=== PATIENT | male | born 1970 | race Caucasian/White ===

== ENCOUNTER 2020-01-19 19:53 | Emergency (ER) | payer SELFPAY ==
[~2020-01-19 19:53] MED LIST: Iopamidol-370 76% 500 ML 1 ML ONE
[2020-01-19] MEDS ORDERED: Ondansetron PF 4 MG/2 ML Vial ONE (20:15)
[2020-01-19] MEDS ORDERED: Lidocaine Viscous Sol 2% 15 ml UD Cup ONE (20:15)
[2020-01-19] MEDS ORDERED: Magnesium 2 GM/50 ML BAG (IN WATER) ONE (20:15)
[2020-01-19] MEDS ORDERED: Famotidine/PF 20 mg/2ml Vial ONE (20:15)
[2020-01-19] MEDS ORDERED: Mag-Al 1200 mg/1200 mg/30 ML UDCUP ONE (20:16)
[2020-01-19 20:22] LABS: #Basophils 0.1 thou/uL (0.0-0.2); #Eosinphils 0.4 thou/uL (0.0-0.7); #Lymphocytes 2.7 thou/uL (1.20-3.40); #Monocytes 1.1 thou/uL (0.11-0.59); #Neutrophils 7.6 thou/uL (1.40-6.50); %Basophils 0.7 % (0.0-1.0); %Eosinophils 3.6 % (0.0-10.0); %Lymphocytes 22.8 % (21.0-51.0); %Monocytes 9.3 % (0.0-10.0); %Neutrophils 63.7 % (42.0-75.0); Mean Corpuscular HGB CONC 34.1 g/dL (32.0-36.0); Mean Corpuscular Hemoglobin 32.3 pg (27.0-31.0); Mean Corpuscular Volume 94.7 fL (78.0-98.0); Mean Platelet Volume 6.5 fL (7.4-10.4); Platelet Count 275 thou/uL (130-400); RBC Distribution Width 12.3 % (11.5-14.5); Red Blood Cell (RBC) Count 4.96 mill/uL (4.70-6.10); White Blood Cell (WBC) Count 11.9 thou/uL (4.8-10.8)
--- NOTE | 2020-01-19 20:29 | RAD ---
FRONTAL RADIOGRAPH CHEST: Date: 01-19-2020 Comparison: None History: Intermittent pain. FINDINGS: Lungs are clear. Heart and mediastinal contours are unremarkable. IMPRESSION: No acute findings. POS: [facility]
[2020-01-19 20:42] LABS: ALT (SGPT) 17 U/L (8-55); AST (SGOT) 32 U/L (5-34); Albumin 4.6 g/dL (3.5-5.0); Alkaline Phosphatase 76 U/L (40-110); Anion Gap 13 mmol/L (10-20); BUN (Urea Nitrogen) 16 mg/dL (8.9-20.6); Bilirubin, Total 0.9 mg/dL (0.2-1.2); Calc. Creatinine Clearance 0 mL/min (70-130); Calcium 10.2 mg/dL (7.8-10.44); Carbon Dioxide 27 mmol/L (22-29); Chloride 104 mmol/L (98-107); Estimated GFR-MDRD 70; Glucose 119 mg/dL (70-105); Lipase 48 U/L (8-78); Potassium 3.7 mmol/L (3.5-5.1); Protein, Total 7.6 g/dL (6.0-8.3); Sodium 140 mmol/L (136-145)
--- NOTE | 2020-01-19 20:50 | CT ---
CT ABDOMEN AND PELVIS: Date: 01-19-2020 Comparison: None History: Epigastric pain Technique: Axial CT imaging at 5 mm intervals from lung bases through the pubic symphysis with IV con trast. Coronal and sagittal reformatted imaging obtained. FINDINGS: The lack of oral contrast limits assessment of the bowel. The visualized lung bases are unremarkable. There is no free intraperitoneal air noted. The liver, gallbladder, and spleen appear unremarkable. The stomach is distended and filled with flui d/debris. The pancreas, adrenal glands, and kidneys demonstrate no acute findings. There is mild diffuse nonspecific wall thickening of small bowel loops within the mid aspect of the u pper abdomen which may be secondary to under distention or mild enteritis. No evidence for bowel obst ruction. Partially visualized appendix appears grossly unremarkable. The vascular structures of the abdomen/pelvis appear patent. No enlarged lymph nodes are noted withi n the abdomen or pelvis. Review of the osseous structures demonstrate degenerative endplate change with disc space narrowing a nd vacuum disc formation at the L5-S1 level. There is no worrisome lytic or blastic bone lesion. IMPRESSION: 1. Distended stomach filled with fluid and debris. 2. Mild wall prominence of small bowel loops in the upper abdomen may signify nonspecific enteritis v ersus under distention. POS: [facility]
[2020-01-19] MEDS ORDERED: Morphine 4 MG/ML VIAL ONE (21:36)
[2020-01-19 22:01] LABS: Bilirubin Negative (Negative); Blood, Urine Negative (Negative); Clarity Clear (Clear); Glucose, Urine (Dipstick) Normal (Negative); Leukocyte Negative Leu/uL (Negative); Nitrite Negative (Negative); Protein, Urine (Dipstick) Negative (Neg-Trace); Urobilinogen Normal mg/dL (Less than 2)
== END 2020-01-19 22:05 | disposition home or self-care (01) ==
LOC: ERS 19:53
DX: R10.13 Epigastric pain (principal); F31.9 Bipolar disorder, unspecified; F17.210 Nicotine dependence, cigarettes, uncomplicated
CPT/HCPCS: 71045; 74177; 80053; 81003; 83690; 84484; 85025; 93005; 94760; 96374; 96375; J2270; J2405; J3475; Q9967; S0028

== ENCOUNTER 2022-07-19 14:28 | Inpatient (IN) | payer SELFPAY ==
[2022-07-19 15:23] LABS: #Eosinphils 0.4 thou/uL (0.0-0.7); #Lymphocytes 2.7 thou/uL (1.20-3.40); #Monocytes 0.8 thou/uL (0.11-0.59); #Neutrophils 6.2 thou/uL (1.40-6.50); %Basophils 0.3 % (0.0-1.0); %Eosinophils 4.2 % (0.0-10.0); %Lymphocytes 26.4 % (21.0-51.0); %Monocytes 7.4 % (0.0-10.0); %Neutrophils 61.7 % (42.0-75.0); Hemoglobin 18.1 g/dL (14.0-18.0); Mean Corpuscular HGB CONC 32.7 g/dL (32.0-36.0); Mean Corpuscular Volume 94.8 fl (78.0-98.0); Mean Platelet Volume 7.1 fL (7.4-10.4); Platelet Count 223 10x3/uL (130-400); RBC Distribution Width 13.9 % (11.5-14.5); Red Blood Cell (RBC) Count 5.85 mill/uL (4.70-6.10)
[2022-07-19 15:42] LABS: ALT (SGPT) 21 U/L (8-55); AST (SGOT) 27 U/L (5-34); Albumin 4.3 g/dL (3.5-5.0); Alkaline Phosphatase 69 U/L (40-110); Anion Gap 11 mmol/L (10-20); BUN (Urea Nitrogen) 13 mg/dL (8.9-20.6); Bilirubin, Total 1.3 mg/dL (0.2-1.2); Calc. Creatinine Clearance 0 mL/min (70-130); Calcium 10.5 mg/dL (7.8-10.44); Carbon Dioxide 31 mmol/L (22-29); Chloride 103 mmol/L (98-107); Estimated GFR 88; Globulin 2.5 g/dL (2.4-3.5); Glucose 97 mg/dL (70-105); Lipase 41 U/L (8-78); Potassium 3.9 mmol/L (3.5-5.1); Protein, Total 6.8 g/dL (6.0-8.3); Sodium 141 mmol/L (136-145)
[2022-07-19] MEDS ORDERED: Mag-Al 1200 mg/1200 mg/30 ML UDCUP ONE (19:31)
[2022-07-19] MEDS ORDERED: Lidocaine Viscous Sol 2% 15 ml UD Cup ONE (19:34)
[2022-07-19 19:39] LABS: Troponin I Less than 0.010 ng/mL (< 0.028)
[2022-07-19] MEDS ORDERED: Nicotine 14 MG PATCH ONE (22:08)
[2022-07-20 01:20] LABS: SARS-CoV-2 NAA Rapid Test Not Detected (NotDetected)
[2022-07-20] MEDS ORDERED: Morphine 4 MG/ML VIAL SLOW IVP PRN (06:17)
[2022-07-20] MEDS ORDERED: Ketorolac Tromethamine 30 MG/ML VIAL IVP SCH (08:30)
[2022-07-20] MEDS ORDERED: Ketorolac Tromethamine 30 MG/ML VIAL ONE (08:59)
[2022-07-20] MEDS: Lactated Ringer's 1,000 ML IV SCH ×3 (09:30→21:42)
[2022-07-20 11:55] VITALS: BMI 24.0
[2022-07-20] MEDS ORDERED: FLU VACC QS2022-23(6MOS UP)/PF 60 MCG/0.5 ML SYRINGE IM ONE (12:15)
[2022-07-20] MEDS ORDERED: Ketorolac Tromethamine 30 MG/ML VIAL IVP PRN (14:00)
[2022-07-20] MEDS ORDERED: traMADol HCl 50 MG TAB PO PRN (18:31)
[2022-07-20] MEDS ORDERED: Ibuprofen 600 MG TAB PO PRN (18:31)
[2022-07-20] MEDS ORDERED: Acetaminophen 500 MG TAB PO PRN (18:31)
[2022-07-20] MEDS ORDERED: Acetaminophen 500 MG TAB PO SCH (18:45)
[2022-07-21] MEDS: Lactated Ringer's 1,000 ML IV SCH (05:10)
[2022-07-21] MEDS ORDERED: Bupivacaine/Epinephrine 0.25% 30 ML VIAL ONE (13:30)
[2022-07-21] MEDS ORDERED: fentaNYL PF 100 MCG/2 ML SYRINGE ONE (13:43)
[2022-07-21] MEDS ORDERED: SUGAMMADEX SODIUM 200 MG/2 ML VIAL ONE (13:43)
[2022-07-21] MEDS ORDERED: HYDROmorphone 2 MG/ML VIAL SLOW IVP PRN (14:35)
[2022-07-21] MEDS ORDERED: Promethazine HCl 25 MG/ML VIAL IVPB PRN (14:35)
[2022-07-21] MEDS ORDERED: Meperidine HCl/PF 25 MG/ML VIAL SLOW IVP PRN (14:35)
[2022-07-21] MEDS ORDERED: FENTANYL 50 MCG/ML 1 ML VIAL ONE (15:36)
[2022-07-21 22:47] VITALS: BP 122/70; TEMP 97.6
== END 2022-07-21 21:10 | disposition home or self-care (01) | DRG 419 ==
LOC: ERS 14:28 → ERHOLD 22:21 → SURG A 07-20 11:51 → OBSVTOIN 07-20 17:20
PROVIDERS: ADMIT Specialist; ATTEND Specialist
PROC: 0FT44ZZ Resection of Gallbladder, Percutaneous Endoscopic Approach (ICD-10-PCS; principal; 2022-07-21)
DX: K80.10 Calculus of gallbladder with chronic cholecystitis without obstruction (principal); Z20.822 Contact with and (suspected) exposure to COVID-19; F41.9 Anxiety disorder, unspecified; F17.210 Nicotine dependence, cigarettes, uncomplicated
CPT/HCPCS: 36415; 71045; 74177; 76705; 80053; 83690; 84484; 85025; 88304; 93005; 94760; 96374; C1889; G0378; J1885; J1956; J3010; J7120; Q9967

== ENCOUNTER 2025-07-01 06:54 | Emergency (ER) | payer SELFPAY | END 2025-07-01 07:55 | disposition home or self-care (01) | LOC: ERS 06:54 | DX: M54.2 Cervicalgia (principal); M62.838 Other muscle spasm; F17.210 Nicotine dependence, cigarettes, uncomplicated; X50.0XXA Overexertion from strenuous movement or load, initial encounter | CPT/HCPCS: 99282 ==

== ENCOUNTER 2025-07-16 07:35 | Emergency (ER) | payer OTHER, SELFPAY | END 2025-07-16 09:06 | disposition home or self-care (01) | LOC: ERS 07:35 | DX: M25.512 Pain in left shoulder (principal); R53.1 Weakness; F17.210 Nicotine dependence, cigarettes, uncomplicated | CPT/HCPCS: 72125 ==